=== PATIENT | male | born 1950 | race Caucasian/White ===

== ENCOUNTER 2022-10-24 13:56 | Inpatient (IN) | payer MEDICARE, OTHER ==
[~2022-10-24] VITALS: Ht 172.7 cm; Wt 78.9 kg
[2022-10-24] MEDS ORDERED: IV NS 0.9% 500 ML BAG IV ONE (14:30)
[2022-10-24] MEDS ORDERED: AMLO-213 PO (14:40)
[2022-10-24] MEDS ORDERED: ACET-868 PO (14:40)
[2022-10-24] MEDS ORDERED: CLON0.1T PO (14:40)
[2022-10-24] MEDS ORDERED: BISA10SU11 RC (14:40)
[2022-10-24] MEDS ORDERED: NA P133E RC (14:40)
[2022-10-24] MEDS ORDERED: MAGN400O6 PO (14:40)
[2022-10-24] MEDS ORDERED: VIT1CAPS44 PO (14:40)
[2022-10-24] MEDS ORDERED: RISP0.2515 PO (14:40)
[2022-10-24] MEDS ORDERED: LISI20TA30 PO (14:40)
[2022-10-24] MEDS ORDERED: SERT25TA PO (14:40)
--- NOTE | 2022-10-24 14:43 | NUR ---
MOVE SHEET SUBMITTED.
[2022-10-24 15:01] LABS: BASOPHILS # (AUTO) 0.1 K/uL (0.0-0.2); EOSINOPHILS % (AUTO) 1.4 % (0.0-6.0); HEMATOCRIT 46 % (39-51); HEMOGLOBIN 15.9 g/dL (13.5-17.5); LYMPHOCYTES # (AUTO) 1.5 K/uL (0.8-4.8); LYMPHOCYTES % (AUTO) 17.4 % (20.0-44.0); MEAN CORPUSCULAR HGB CONC 34 g/dl (31.0-36.0); MEAN CORPUSCULAR VOLUME 86 fL (80-96); MONOCYTES # (AUTO) 0.7 K/uL (0.1-1.30); MONOCYTES % (AUTO) 7.7 % (2.0-12.0); NEUTROPHILS # (AUTO) 6.4 K/uL (1.8-8.9); NEUTROPHILS % (AUTO) 72.5 % (43.0-81.0); PLATELET COUNT (AUTO) 189 K/uL (150-450); RED BLOOD CELL COUNT(AUTO) 5.38 MIL/uL (4.5-6.0); WHITE BLOOD COUNT (AUTO) 8.8 K/uL (4.3-11.0)
[2022-10-24 15:15] LABS: CARBON DIOXIDE 30 mmol/L (21-32); CHLORIDE 101 mmol/L (98-107); CREATININE 1.2 mg/dL (0.6-1.3); GLUCOSE 107 mg/dL (74-106); POTASSIUM 3.7 mmol/L (3.5-5.1); SODIUM SERUM 138 mmol/L (136-145); UREA NITROGEN, BLOOD 18 mg/dL (7-18)
[2022-10-24 15:21] LABS: ALANINE AMINOTRANSFERASE 21 U/L (12-78); ALBUMIN 3.9 g/dL (3.4-5.0); ALKALINE PHOSPHATASE 88 U/L (46-116); ASPARTATE AMINOTRANSFERASE 16 U/L (15-37); BILIRUBIN,DIRECT 0.1 mg/dL (0.0-0.2); BILIRUBIN,TOTAL 0.5 mg/dL (0.2-1.0); TOTAL PROTEIN, SERUM 7.3 g/dL (6.4-8.2)
[2022-10-24] MEDS ORDERED: Z GUARD REMEDY 4 OZ OINT TP PRN (15:30)
[2022-10-24] MEDS ORDERED: BISACODYL SUPP (10 MG) 10 MG/SUPP.RECT SUPP.RECT RC PRN (15:30)
[2022-10-24] MEDS ORDERED: CLONIDINE HCL 0.1 MG TABLET PO PRN (15:30)
[2022-10-24] MEDS ORDERED: MAGNESIUM HYDROXIDE 30 ML UDC PO PRN ×2 (15:30)
[2022-10-24] MEDS ORDERED: ACETAMINOPHEN 325 MG TABLET PO PRN ×4 (15:30)
[2022-10-24] MEDS ORDERED: NA PHOS,M-B/NA PHOS,DI-BA 1 EA ENEMA RC PRN (15:30)
[2022-10-24] MEDS ORDERED: ONDANSETRON HCL/PF 4 MG/2 ML VIAL IVP PRN (15:30)
[2022-10-24] MEDS ORDERED: MAG HYDROX/AL HYDROX/SIMETH 30 ML UDC PO PRN (15:30)
--- NOTE | 2022-10-24 16:25 | NUR ---
PT IN BED 7 A/O X4 DEAF BREATHNG EVEN AND UNLABORED ON ROOM AIR. IN BED HIGH ALVARENGA BED LOCKED IN LOWEST POSTION.
--- NOTE | 2022-10-24 16:26 | NUR ---
18G LAC STARTED BLOOD DRAWN.
[2022-10-24] MEDS: risperiDONE 1 MG TABLET PO SCH (17:00)
[2022-10-24] MEDS: LISINOPRIL (20MG) 20 MG TABLET PO SCH (17:00)
--- NOTE | 2022-10-24 17:49 | NUR ---
covid swab taken and sent to lab.
[2022-10-24 20:30] VITALS: BP 146/71
[2022-10-24] MEDS: IV NS 0.9% 1,000 ML IV PRN (21:29)
--- NOTE | 2022-10-24 21:30 | NUR ---
MS SENIOR PROGRAM MANAGER NOTE RECEIVED REPORT FROM THERAPIST GARY. PATIENT WAS BROUGHT TO THE UNIT AT [facility] [address] VIA STRETCHER, ACCOMPANIED BY ER STAFF. PATIENT IS ALERT AND ORIENTED X3-4. ABLE TO MAKE NEEDS KNOWN. AFEBRILE AND NOT IN ANY FORM OF ACUTE DISTRESS. PATIENT WAS ADMITTED FOR EVALUATION FOR UNCONTROLLED HYPERTENSION AND WAS DIAGNOSED WITH FAILURE TO THRIVE. PATIENT WAS NOTED TO BE DEAF AND COMMUNICATED BY WRITING ON A PIECE OF PAPER. EXPLAINED ADMISSION PROCESS WHICH INCLUDES SKIN ASSESSMENT WHICH THE PATIENT AGREED. UPON INSPECTION, A SCAB WAS NOTED IN L HAND BUT OVERALL, SKIN IS INTACT. WITH IV ACCESS ON LFA 18G-SL. VITAL SIGNS TAKEN AND FOLLOWS: BP- 146/71, P- 65, O2 SAT ON RA 97%, R- 20, T- 98.3. BELONGINGS AND VALUABLES CHECKED AND WAS PROPERLY DOCUMENTED BY ASSIGNED IT APPLICATION ARCHITECT. SAFETY MEASURES IN PLACE. KEPT BED IN LOCKED AND IN LOW POSITION. SIDE RAILS UP X2. BED ALARM ON. ADVISED TO USE THE CALL LIGHT WHEN IN NEED OF ASSISTANCE.
[2022-10-24 22:45] VITALS: BP 146/71
[2022-10-25 06:19] LABS: BASOPHILS # (AUTO) 0.1 K/uL (0.0-0.2); BASOPHILS % (AUTO) 0.9 % (0.0-2.0); EOSINOPHILS % (AUTO) 1.6 % (0.0-6.0); HEMATOCRIT 43 % (39-51); HEMOGLOBIN 14.8 g/dL (13.5-17.5); LYMPHOCYTES # (AUTO) 1.3 K/uL (0.8-4.8); LYMPHOCYTES % (AUTO) 17.4 % (20.0-44.0); MEAN CORPUSCULAR HGB CONC 35 g/dl (31.0-36.0); MEAN CORPUSCULAR VOLUME 85 fL (80-96); MONOCYTES # (AUTO) 0.6 K/uL (0.1-1.30); MONOCYTES % (AUTO) 7.8 % (2.0-12.0); NEUTROPHILS # (AUTO) 5.3 K/uL (1.8-8.9); NEUTROPHILS % (AUTO) 72.3 % (43.0-81.0); PLATELET COUNT (AUTO) 169 K/uL (150-450); RED BLOOD CELL COUNT(AUTO) 5.01 MIL/uL (4.5-6.0); WHITE BLOOD COUNT (AUTO) 7.4 K/uL (4.3-11.0)
--- NOTE | 2022-10-25 06:30 | NUR ---
MS RN CLOSING NOTE PATIENT IN BED, ASLEEP BUT EASY TO AROUSE AND RESPONSIVE. ALERT AND ORIENTED X3-4. ABLE TO MAKE NEEDS KNOWN. AFEBRILE AND NOT IN ANY FORM OF ACUTE DISTRESS. NO C/O PAIN OR DISCOMFORT THROUGHOUT THE SHIFT. WITH IV ACCESS ON LFA 18G RUNNING WITH NS AT 75ML/HR. CONSTANT VISUAL CHECK DONE. SAFETY MEASURES IN PLACE. KEPT BED IN LOCKED AND IN LOW POSITION. SIDE RAILS UP X2. BED ALARM ON. ADVISED TO USE THE CALL LIGHT WHEN IN NEED OF ASSISTANCE. ALL NURSING NEEDS ATTENDED. ENDORSED TO INCOMING SHIFT FOR CONTINUITY OF CARE.
[2022-10-25 06:49] LABS: CALCIUM, SERUM 8.2 mg/dL (8.5-10.1); CREATININE 1.1 mg/dL (0.6-1.3); MAGNESIUM 2.2 mg/dL (1.8-2.4); PHOSPHORUS 2.9 mg/dL (2.5-4.9); POTASSIUM 3.3 mmol/L (3.5-5.1)
--- NOTE | 2022-10-25 07:50 | NUR ---
RN-NOTES RECEIVED PATIENT LYING IN BED AWAKE,A/O X3,GUARDED,NO ACUTE DISTRESS NOTED. PATIENT ON IV FLUID RUNNING AT 75ML/HR, INFUSING WELL. PATIENT COMMUNICATING TROUGH WRITING.USES URINAL AT BEDSIDE.
[2022-10-25 08:00] VITALS: BP 152/81
[2022-10-25] MEDS ORDERED: POTASSIUM CHLORIDE 20 MEQ TAB.PRT.SR PO ONE (08:00)
[2022-10-25] MEDS: LORAZEPAM 0.5 MG TABLET PO PRN (08:24)
[2022-10-25] MEDS: NICOTINE PATCH (21MG) 21 MG PATCH.TD24 TD SCH (08:24)
[2022-10-25] MEDS: risperiDONE 1 MG TABLET PO SCH ×2 (08:36→16:37)
[2022-10-25] MEDS: AMLODIPINE BESYLATE 10 MG TABLET PO SCH (08:36)
[2022-10-25] MEDS: LISINOPRIL (20MG) 20 MG TABLET PO SCH ×2 (08:36→16:37)
[2022-10-25] MEDS: SERTRALINE HCL 25 MG TABLET PO SCH (08:36)
--- NOTE | 2022-10-25 08:40 | NUR ---
RN-NOTES PATIENT SCREAMING AND YELLING INSIST OF GOING FOR SMOKE. DR. BA AT BEDSIDE AND GAVE VERBAL ORDER OF NICOTINE 21 MG PATCH AND ATIVAN 0.5MG P.O Q6HR PRN. NOTED AND CARRIED OUT. REDIRECTED PATIENT AND ATIVAN 0.5MG P.O GIVEN PRN ORDER. WILL CONT. MONITORING FOR SAFETY AND BEHAVIOR.
--- NOTE | 2022-10-25 09:50 | NUR ---
RN-NOTES PATIENT LYING IN BED WATCHING TV,CALM,NO ACUTE DISTRESS NOTED.
[2022-10-25] MEDS: IV NS 0.9% 1,000 ML IV PRN (10:17)
[2022-10-25] MEDS ORDERED: CLONIDINE HCL 0.1 MG TABLET PO PRN (11:00)
[2022-10-25 16:00] VITALS: BP 141/86
--- NOTE | 2022-10-25 18:42 | NUR ---
RN-NOTES PATIENT LYING IN BED WATCHING TV,CALM,GUARDED A/O X3,NO ACUTE DISTRESS NOTED. PATIENT IS COMPLAINT WITH MEDICATIONS,ABLE TO AMBULATE TO THE BATHROOM WITHOUT ASSIST. HEP LOCK ON LAC 18G INTACT.REFUSED TO WEAR THE DVT PUMP DESPITE ENCOURAGEMENT AND EXPLANATIONS OF THE RISK AND BENEFITS. PATIENT STILL REFUSED. PATIENT CAN COMMUNICATE THROUGH WRITING.ALL NEEDS ATTENDED AND ANTICIPATED. WILL ENDORSE TO INCOMING NURSE FOR THE CONTINUITY OF CARE.
--- NOTE | 2022-10-25 19:24 | NUR ---
MS RN OPENING NOTES: RECEIVED PATIENT SLEEP IN BED COMFORTABLY, AROUSABLE TO VERBAL STIMULI, BED IN LOW POSITION CALL LIGHTS WITHIN REACH, NO COMPLAIN OF PAIN AND DISCOMFORT AT THIS TIME, ON ROOM AIR SATURATING WELL, PATIENT IS A/O 3- GARBLED, HARD OF HEARING, AMBULATORY, IV LINE AT LAC#18 SL, PATIENT KEPT CLEAN AND DRY ALL NEEDS MET WILL CONTINUE TO MONITOR.
[2022-10-25 21:11] VITALS: BP_SYST 139
--- NOTE | 2022-10-26 06:20 | NUR ---
MS RN CLOSING NOTES: PATIENT SLEEP IN BED COMFORTABLY, AROUSABLE TO VERBAL STIMULI, BE IN LOW POSITION CALL LIGHTS WITHIN REACH, NO COMPLAIN OF PAIN AND DISCOMFORT AT THIS TIME, ON ROOM AIR SATURATING WELL, PATIENT IS A/O X2-3 GARBLED WORDS, HARD OF HEARING OFFERED, WRITING BUT REFUSED, PATIENT HAS EPISODE OF AGITATION, ATTEMPT TO THROW SHOES AND CALLED SECURITY FOR ASSISTANCE, OFFERED MEDICATION PATIENT REFUSED, PATIENT KEPT CLEAN AND DRY ALL NEEDS MET ENDORSE TO INCOMING SHIFT.
--- NOTE | 2022-10-26 07:51 | NUR ---
MS RN OPENING NOTE (DAY SHIFT) RECEIVED PATIENT LYING IN BED AWAKE, A/O X3, GUARDED, NO ACUTE DISTRESS NOTED. PATIENT HAS 18 GAUGE SALINE LOCKED PIV CATHETER TO HIS LEFT ANTECUBITAL SPACE THAT IS CLEAN, DRY AND INTACT, FLUSHES WELL. PATIENT COMMUNICATING THROUGH WRITING DUE TO HARD OF HEARING IMPAIRED. USES URINAL AT BEDSIDE. SPEECH IS GARBLED WHEN HE DOES SPEAK BRIEFLY. WILL CONTINUE TO CARE FOR AND MONITOR PATIENT PER MD POC.
[2022-10-26 08:00] VITALS: BP 132/79
[2022-10-26] MEDS: AMLODIPINE BESYLATE 10 MG TABLET PO SCH (08:43)
[2022-10-26] MEDS: NICOTINE PATCH (21MG) 21 MG PATCH.TD24 TD SCH (08:44)
[2022-10-26] MEDS: SERTRALINE HCL 25 MG TABLET PO SCH (08:44)
[2022-10-26] MEDS: risperiDONE 1 MG TABLET PO SCH ×2 (08:44→17:17)
[2022-10-26] MEDS: LISINOPRIL (20MG) 20 MG TABLET PO SCH ×2 (08:44→17:17)
[2022-10-26] MEDS ORDERED: POTASSIUM CHLORIDE 20 MEQ TAB.PRT.SR PO ONE (09:30)
[2022-10-26] MEDS: LORAZEPAM 0.5 MG TABLET PO PRN ×2 (09:43→14:01)
[2022-10-26 16:00] VITALS: BP 155/84
--- NOTE | 2022-10-26 18:14 | NUR ---
MS RN CLOSING NOTE (DAY SHIFT) PATIENT AWAKE IN BED, ALERT AND ORIENTED X 3. BE IN LOW POSITION AND CALL LIGHT/MISHRA WITHIN REACH. NO COMPLAINT OF PAIN NOR DISCOMFORT AT THIS TIME. PT ON ROOM AIR SATURATING WELL. PATIENT CONTINUES TO BE HARD OF HEARING. WRITING ON PAPER TO COMMUNICATE OR USING HAND GESTURES. PATIENT APPROPRIATELY ASKING FOR PRN FOR AGITATION. PATIENT AGREED TO SIGN TAKING RESPONSABILITY FOR SMOKING AND SMOKED OUTSIDE WITH STAFF COMMERCIAL OCEAN CLAMMER X 2 THIS AFTERNOON. PATIENT UP OOB TO BATHROOM AD IRMA WITH STEADY WALKING GAIT. PT HAD GOOD APPETITE AT ALL THREE MEALS. WILL ENDORSE TO MOGUL OPERATOR RN FOR ERMA.
--- NOTE | 2022-10-26 19:00 | NUR ---
RN OPENING NOTE PT IS AWAKE, SITTING IN BED. A/O 3, GARBLED SPEECH AND COMMUNICATE THRU WRITING,. PT IS IN RA TOLERATING WELL, BREATHING EVEN AND UNLABORED AT THIS TIME. PT IV PRESENT IS ON LEFT AC #18G SALINE LOCK. PATENT, INTACT AND FLUSHES WELL W/ NO S&SX OF INFILTRATION @ SITE NOTED. SAFETY MEASURES IN PLACE. BED IN LOWEST AND LOCKED POSITION. SIDE RAILS X 2. BEDSIDE TABLE AND CALL LIGHT IS EASY REACH. WILL CONTINUE TO MONITOR PT ACCORDINGLY.
[2022-10-26 20:00] VITALS: BP 176/90
[2022-10-26] MEDS ORDERED: MIRTAZAPINE 15 MG TABLET PO SCH (22:00)
--- NOTE | 2022-10-27 06:47 | NUR ---
RN CLOSING NOTE PT IS AWAKE & RESTING IN BED. A/O 3, RESPONSIVE AND FOLLOWS VERBAL COMMAND. PT IS IN RA TOLERATING WELL, BREATHING EVEN AND UNLABORED AT THIS TIME. PT IV PRESENT IS ON LEFT AC #18G SALINE LOCK. PATENT, INTACT AND FLUSHES WELL W/ NO S&SX OF INFILTRATION @ SITE NOTED. ADMINISTERED MEDICATION ACCORDINGLY PER MD'S ORDER. SAFETY MEASURES IN PLACE. BED IN LOWEST AND LOCKED POSITION. SIDE RAILS X 2. BEDSIDE TABLE AND CALL LIGHT IS EASY REACH. WILL ENDORSE TO THE NEXT SHIFT FOR ERMA.
[2022-10-27 07:00] VITALS: BP_SYST 119; BP_SYST 154; BP_DIAS 79
--- NOTE | 2022-10-27 07:20 | NUR ---
RN OPENING NOTE- PT A/O 3, UNINTELLIGIBLE SPEECH AND COMMUNICATES THRU WRITING,. PT IS IN RA TOLERATING WELL, BREATHING EVEN AND NON-LABORED AT THIS TIME. PT IV PRESENT IS ON LEFT AC #18G SALINE LOCK. PATENT, INTACT , SAFETY MEASURES IN PLACE. BED IN LOWEST AND LOCKED POSITION. SIDE RAILS MONITOR / ASSIST
[2022-10-27] MEDS: AMLODIPINE BESYLATE 10 MG TABLET PO SCH (08:43)
[2022-10-27 08:44] VITALS: BP 154/79
[2022-10-27] MEDS: risperiDONE 1 MG TABLET PO SCH (08:44)
[2022-10-27] MEDS: LISINOPRIL (20MG) 20 MG TABLET PO SCH (08:44)
[2022-10-27] MEDS: NICOTINE PATCH (21MG) 21 MG PATCH.TD24 TD SCH (08:44)
[2022-10-27] MEDS ORDERED: MIRT-121 PO (09:11)
--- NOTE | 2022-10-27 13:30 | NUR ---
RN NOTE / DC - PT DC AT THIS TIME TO [facility]. REPORT PHONED INTO FACILITY. ORDERS REVIEWED AND UNDERSTOOD. VS STABLE. IV REMOVED. ID [id number] REMOVED. ESCORTED OFF UNIT BY STAFF.
== END 2022-10-27 14:00 | DRG 640 ==
LOC: ER 14:17 → MED 20:10
PROVIDERS: ADMIT Internal Medicine; ATTEND Internal Medicine
DX: E86.0 Dehydration (principal); G93.41 Metabolic encephalopathy; F25.9 Schizoaffective disorder, unspecified; R45.1 Restlessness and agitation; I69.320 Aphasia following cerebral infarction; J44.9 Chronic obstructive pulmonary disease, unspecified; H35.30 Unspecified macular degeneration; H91.90 Unspecified hearing loss, unspecified ear; R62.7 Adult failure to thrive; Z68.26 Body mass index [BMI] 26.0-26.9, adult; Z79.899 Other long term (current) drug therapy; I11.0 Hypertensive heart disease with heart failure; I50.9 Heart failure, unspecified
CPT/HCPCS: 36415; 71045-TC; 80048-TC; 80076-TC; 83605-TC; 83735-TC; 84100-TC; 84484-TC; 85025-TC; 87040-TC; 87081-TC; A4223; C9803; G0378; J7030; J7040

== ENCOUNTER 2023-06-05 19:11 | Inpatient (IN) | payer MEDICARE, OTHER ==
[~2023-06-05] VITALS: Ht 172.7 cm; Wt 84.4 kg
[~2023-06-05 19:11] MED LIST: ACET-868 PO; AMLO-213 PO; BISA10SU11 RC; CLON0.1T PO; LISI20TA30 PO; MAGN400O6 PO; MIRT-121 PO; NA P133E RC; RISP0.2515 PO; VIT1CAPS44 PO
[2023-06-05 20:22] LABS: BASOPHILS # (AUTO) 0.1 K/uL (0.0-0.2); EOSINOPHILS # (AUTO) 0.2 K/uL (0.0-0.7); EOSINOPHILS % (AUTO) 2.2 % (0.0-6.0); HEMATOCRIT 44 % (39-51); HEMOGLOBIN 14.9 g/dL (13.5-17.5); LYMPHOCYTES # (AUTO) 1.6 K/uL (0.8-4.8); LYMPHOCYTES % (AUTO) 19.3 % (20.0-44.0); MEAN CORPUSCULAR HEMOGLOBIN 29 PG (26.0-33.0); MEAN CORPUSCULAR HGB CONC 34 g/dl (31.0-36.0); MEAN CORPUSCULAR VOLUME 87 fL (80-96); MONOCYTES # (AUTO) 0.7 K/uL (0.1-1.30); MONOCYTES % (AUTO) 8.1 % (2.0-12.0); NEUTROPHILS # (AUTO) 5.7 K/uL (1.8-8.9); NEUTROPHILS % (AUTO) 69.4 % (43.0-81.0); PLATELET COUNT (AUTO) 169 K/uL (150-450); RED BLOOD CELL COUNT(AUTO) 5.12 MIL/uL (4.5-6.0); RED CELL DISTRIBUTION WIDTH 13.4 % (11.5-15.0); WHITE BLOOD COUNT (AUTO) 8.1 K/uL (4.3-11.0)
[2023-06-05 20:36] LABS: CARBON DIOXIDE 29 mmol/L (21-32); CHLORIDE 99 mmol/L (98-107); GLUCOSE 102 mg/dL (74-106); POTASSIUM 3.4 mmol/L (3.5-5.1); SODIUM SERUM 137 mmol/L (136-145); UREA NITROGEN, BLOOD 18 mg/dL (7-18)
[2023-06-05 21:09] LABS: APPEARANCE,URINE CLEAR (CLEAR); BILIRUBIN,URINE NEGATIVE (NEGATIVE); BLOOD, URINE NEGATIVE Ery/uL (NEGATIVE); COLOR,URINE YELLOW (YELLOW); KETONES,URINE NEGATIVE (NEGATIVE); LEUKOCYTE ESTERASE ,URINE NEGATIVE (NEGATIVE); NITRITE, URINE POSITIVE (NEGATIVE); PROTEIN,URINE NEGATIVE (NEGATIVE); UGLUCOSE NEGATIVE (NEGATIVE)
[2023-06-05 21:44] LABS: ADD URINE CULTURE YES; BACTERIA,URINE 1+ /HPF (None Seen); RBC,URINE 0-2 /HPF (0-2); SQUAMOUS EPITHELIAL CELL,UR 0-2 /HPF (None Seen); WBC,URINE 0-2 /HPF (0-3)
[2023-06-05] MEDS ORDERED: LIDOCAINE 1%-EPI 1:100,000 20 ML VIAL ONE (21:56)
[2023-06-05] MEDS ORDERED: CEPHALEXIN MONOHYDRATE 500 MG CAPSULE PO ONE (22:00)
[2023-06-05] MEDS ORDERED: LIDOCAINE 1%-EPI 1:100,000 20 ML VIAL TP ONE (22:00)
[2023-06-05 23:15] VITALS: BP 159/80; TEMP 98; O2SAT 99
[2023-06-05] MEDS ORDERED: IPRATROPIUM NEB FS 0.5 MG/2.5 ML AMPUL.NEB NEB PRN (23:30)
[2023-06-05] MEDS ORDERED: POTASSIUM CHLORIDE 20 MEQ TAB.PRT.SR PO ONE (23:30)
[2023-06-05] MEDS ORDERED: ALBUTEROL FS 2.5 MG/3 ML VIAL.NEB NEB PRN (23:30)
[2023-06-05] MEDS ORDERED: Z GUARD REMEDY 4 OZ OINT TP PRN (23:30)
[2023-06-05] MEDS ORDERED: MAGNESIUM HYDROXIDE 30 ML UDC PO PRN (23:30)
[2023-06-05] MEDS ORDERED: ONDANSETRON HCL/PF 4 MG/2 ML VIAL IVP PRN (23:30)
[2023-06-05] MEDS ORDERED: ACETAMINOPHEN 325 MG TABLET PO PRN (23:30)
[2023-06-06] MEDS ORDERED: CEPHALEXIN MONOHYDRATE 500 MG CAPSULE PO SCH
[2023-06-06 00:45] VITALS: BP 159/80; TEMP 98; O2SAT 99
[2023-06-06] MEDS ORDERED: NA PHOS,M-B/NA PHOS,DI-BA 1 EA ENEMA RC PRN (01:00)
[2023-06-06] MEDS ORDERED: CLONIDINE HCL 0.1 MG TABLET PO PRN (01:00)
[2023-06-06] MEDS ORDERED: BISACODYL SUPP (10 MG) 10 MG/SUPP.RECT SUPP.RECT RC PRN (01:00)
[2023-06-06] MEDS: CEPHALEXIN MONOHYDRATE 500 MG CAPSULE PO SCH ×3 (05:27→18:21)
[2023-06-06 06:21] LABS: BASOPHILS # (AUTO) 0.1 K/uL (0.0-0.2); BASOPHILS % (AUTO) 0.8 % (0.0-2.0); EOSINOPHILS # (AUTO) 0.2 K/uL (0.0-0.7); EOSINOPHILS % (AUTO) 2.7 % (0.0-6.0); HEMATOCRIT 45 % (39-51); HEMOGLOBIN 15.5 g/dL (13.5-17.5); LYMPHOCYTES # (AUTO) 1.1 K/uL (0.8-4.8); LYMPHOCYTES % (AUTO) 15.5 % (20.0-44.0); MEAN CORPUSCULAR HEMOGLOBIN 29 PG (26.0-33.0); MEAN CORPUSCULAR HGB CONC 34 g/dl (31.0-36.0); MEAN CORPUSCULAR VOLUME 86 fL (80-96); MONOCYTES # (AUTO) 0.6 K/uL (0.1-1.30); MONOCYTES % (AUTO) 7.9 % (2.0-12.0); NEUTROPHILS # (AUTO) 5.1 K/uL (1.8-8.9); NEUTROPHILS % (AUTO) 73.1 % (43.0-81.0); PLATELET COUNT (AUTO) 177 K/uL (150-450); RED CELL DISTRIBUTION WIDTH 13.2 % (11.5-15.0)
[2023-06-06 06:48] LABS: CALCIUM, SERUM 8.6 mg/dL (8.5-10.1); CARBON DIOXIDE 29 mmol/L (21-32); CHLORIDE 99 mmol/L (98-107); CREATININE 1.1 mg/dL (0.6-1.3); GLUCOSE 149 mg/dL (74-106); MAGNESIUM 2.2 mg/dL (1.8-2.4); PHOSPHORUS 3.4 mg/dL (2.5-4.9); POTASSIUM 3.4 mmol/L (3.5-5.1); SODIUM SERUM 138 mmol/L (136-145); UREA NITROGEN, BLOOD 14 mg/dL (7-18)
[2023-06-06 07:07] LABS: THYROID STIMULATING HORMONE 3.579 uIU/mL (0.358-3.74)
[2023-06-06 08:00] VITALS: BP 139/87; TEMP 97.8; O2SAT 97
[2023-06-06] MEDS: PANTOPRAZOLE 40 MG TABLET.DR PO SCH (08:36)
[2023-06-06] MEDS: risperiDONE 1 MG TABLET PO SCH ×2 (08:48→18:21)
[2023-06-06] MEDS: NICOTINE PATCH (14MG) 14 MG PATCH.TD24 TD SCH (08:48)
[2023-06-06] MEDS: LISINOPRIL (20MG) 20 MG TABLET PO SCH ×2 (08:49→18:22)
[2023-06-06] MEDS: AMLODIPINE BESYLATE 10 MG TABLET PO SCH (08:50)
[2023-06-06] MEDS ORDERED: POTASSIUM CHLORIDE 20 MEQ TAB.PRT.SR PO ONE (11:30)
[2023-06-06 16:00] VITALS: BP 136/71; TEMP 98.4; O2SAT 96
[2023-06-06 20:00] VITALS: BP 125/61; TEMP 97.8; O2SAT 95
[2023-06-06] MEDS: MIRTAZAPINE 15 MG TABLET PO SCH (21:34)
[2023-06-07] MEDS: CEPHALEXIN MONOHYDRATE 500 MG CAPSULE PO SCH ×4 (00:05→17:23)
[2023-06-07 06:05] LABS: BASOPHILS # (AUTO) 0.1 K/uL (0.0-0.2); BASOPHILS % (AUTO) 0.8 % (0.0-2.0); EOSINOPHILS # (AUTO) 0.2 K/uL (0.0-0.7); EOSINOPHILS % (AUTO) 2.5 % (0.0-6.0); HEMATOCRIT 44 % (39-51); HEMOGLOBIN 14.9 g/dL (13.5-17.5); LYMPHOCYTES # (AUTO) 1.2 K/uL (0.8-4.8); LYMPHOCYTES % (AUTO) 16.5 % (20.0-44.0); MEAN CORPUSCULAR HEMOGLOBIN 29 PG (26.0-33.0); MEAN CORPUSCULAR HGB CONC 34 g/dl (31.0-36.0); MEAN CORPUSCULAR VOLUME 86 fL (80-96); MONOCYTES # (AUTO) 0.6 K/uL (0.1-1.30); MONOCYTES % (AUTO) 8.5 % (2.0-12.0); NEUTROPHILS # (AUTO) 5.3 K/uL (1.8-8.9); NEUTROPHILS % (AUTO) 71.7 % (43.0-81.0); PLATELET COUNT (AUTO) 160 K/uL (150-450); RED BLOOD CELL COUNT(AUTO) 5.14 MIL/uL (4.5-6.0); RED CELL DISTRIBUTION WIDTH 13.1 % (11.5-15.0); WHITE BLOOD COUNT (AUTO) 7.4 K/uL (4.3-11.0)
[2023-06-07 06:26] LABS: CALCIUM, SERUM 8.2 mg/dL (8.5-10.1); CARBON DIOXIDE 26 mmol/L (21-32); CHLORIDE 104 mmol/L (98-107); CREATININE 1.1 mg/dL (0.6-1.3); GLUCOSE 104 mg/dL (74-106); POTASSIUM 3.7 mmol/L (3.5-5.1); SODIUM SERUM 139 mmol/L (136-145); UREA NITROGEN, BLOOD 19 mg/dL (7-18)
[2023-06-07] MEDS: LISINOPRIL (20MG) 20 MG TABLET PO SCH ×2 (08:25→17:34)
[2023-06-07] MEDS: NICOTINE PATCH (14MG) 14 MG PATCH.TD24 TD SCH (08:25)
[2023-06-07] MEDS: risperiDONE 1 MG TABLET PO SCH ×2 (08:25→17:23)
[2023-06-07] MEDS: PANTOPRAZOLE 40 MG TABLET.DR PO SCH (08:26)
[2023-06-07] MEDS: AMLODIPINE BESYLATE 10 MG TABLET PO SCH (08:26)
[2023-06-07 20:00] VITALS: BP 145/70; TEMP 98.1; O2SAT 96
[2023-06-07] MEDS: MIRTAZAPINE 15 MG TABLET PO SCH (22:03)
[2023-06-08] MEDS: CEPHALEXIN MONOHYDRATE 500 MG CAPSULE PO SCH ×3 (00:52→13:14)
[2023-06-08 07:00] VITALS: BP 118/70; TEMP 98.2; O2SAT 94
[2023-06-08] MEDS ORDERED: Cephalexin Monohydrate PO (08:32)
[2023-06-08] MEDS: AMLODIPINE BESYLATE 10 MG TABLET PO SCH (09:16)
[2023-06-08] MEDS: PANTOPRAZOLE 40 MG TABLET.DR PO SCH (09:16)
[2023-06-08 09:17] VITALS: BP 118/70
[2023-06-08] MEDS: LISINOPRIL (20MG) 20 MG TABLET PO SCH (09:17)
[2023-06-08] MEDS: NICOTINE PATCH (14MG) 14 MG PATCH.TD24 TD SCH (09:17)
[2023-06-08] MEDS: risperiDONE 1 MG TABLET PO SCH (09:17)
== END 2023-06-08 14:34 | DRG 603 ==
LOC: ER 19:23 → MED 22:29
PROVIDERS: ADMIT Nurse Practitioner Family; ATTEND Internal Medicine
PROC: 0J950ZZ Drainage of Left Neck Subcutaneous Tissue and Fascia, Open Approach (ICD-10-PCS; principal; 2023-06-05)
PROC: 0J940ZZ Drainage of Right Neck Subcutaneous Tissue and Fascia, Open Approach (ICD-10-PCS; 2023-06-05)
DX: L02.11 Cutaneous abscess of neck (principal); N39.0 Urinary tract infection, site not specified; I69.320 Aphasia following cerebral infarction; J44.9 Chronic obstructive pulmonary disease, unspecified; E87.6 Hypokalemia; F20.9 Schizophrenia, unspecified; F32.A Depression, unspecified; H91.90 Unspecified hearing loss, unspecified ear; I50.9 Heart failure, unspecified; I11.0 Hypertensive heart disease with heart failure; R53.1 Weakness; B96.89 Other specified bacterial agents as the cause of diseases classified elsewhere; F17.210 Nicotine dependence, cigarettes, uncomplicated; Z71.6 Tobacco abuse counseling
CPT/HCPCS: 36415; 71045-TC; 80048-TC; 81001; 83735-TC; 84100-TC; 84443-TC; 84484-TC; 85025-TC; 87086-TC; 97112-TC; 97116-TC; 97530-TC; G0378; J3490

== ENCOUNTER 2024-03-02 18:57 | Inpatient (IN) | payer MEDICARE, OTHER ==
[~2024-03-02] VITALS: Ht 177.8 cm; Wt 94.3 kg
[~2024-03-02 18:57] MED LIST changes: +Cephalexin Monohydrate PO
[2024-03-02 19:30] LABS: BASOPHILS # (AUTO) 0.1 K/uL (0.0-0.2); BASOPHILS % (AUTO) 1.1 % (0.0-2.0); EOSINOPHILS # (AUTO) 0.2 K/uL (0.0-0.7); EOSINOPHILS % (AUTO) 1.9 % (0.0-6.0); HEMATOCRIT 45 % (39-51); HEMOGLOBIN 15.2 g/dL (13.5-17.5); LYMPHOCYTES # (AUTO) 1.7 K/uL (0.8-4.8); LYMPHOCYTES % (AUTO) 19.1 % (20.0-44.0); MEAN CORPUSCULAR HEMOGLOBIN 29 PG (26.0-33.0); MEAN CORPUSCULAR HGB CONC 34 g/dl (31.0-36.0); MEAN CORPUSCULAR VOLUME 86 fL (80-96); MONOCYTES # (AUTO) 0.7 K/uL (0.1-1.30); MONOCYTES % (AUTO) 8.1 % (2.0-12.0); NEUTROPHILS # (AUTO) 6.4 K/uL (1.8-8.9); NEUTROPHILS % (AUTO) 69.8 % (43.0-81.0); PLATELET COUNT (AUTO) 187 K/uL (150-450); RED BLOOD CELL COUNT(AUTO) 5.23 MIL/uL (4.5-6.0); RED CELL DISTRIBUTION WIDTH 13.2 % (11.5-15.0); WHITE BLOOD COUNT (AUTO) 9.1 K/uL (4.3-11.0)
[2024-03-02 19:46] LABS: CALCIUM, SERUM 9.2 mg/dL (8.5-10.1); CARBON DIOXIDE 29 mmol/L (21-32); CHLORIDE 102 mmol/L (98-107); CREATININE 1.2 mg/dL (0.6-1.3); GLUCOSE 131 mg/dL (74-106); POTASSIUM 3.4 mmol/L (3.5-5.1); SODIUM SERUM 139 mmol/L (136-145); UREA NITROGEN, BLOOD 22 mg/dL (7-18)
[2024-03-02 21:10] VITALS: BP 147/80; TEMP 98.4; O2SAT 96
[2024-03-02] MEDS ORDERED: ACETAMINOPHEN 325 MG TABLET PO PRN (22:00)
[2024-03-02] MEDS ORDERED: MAG HYDROX/AL HYDROX/SIMETH 30 ML UDC PO PRN (22:00)
[2024-03-02] MEDS ORDERED: MAGNESIUM HYDROXIDE 30 ML UDC PO PRN (22:00)
[2024-03-02] MEDS ORDERED: Z GUARD REMEDY 4 OZ OINT TP PRN (22:00)
[2024-03-02] MEDS ORDERED: ONDANSETRON HCL/PF 4 MG/2 ML VIAL IVP PRN (22:00)
[2024-03-02] MEDS ORDERED: ZOLPIDEM TARTRATE 5 MG TABLET PO PRN (22:00)
[2024-03-02] MEDS: POTASSIUM CHLORIDE 20 MEQ TAB.PRT.SR PO ONE (22:14)
[2024-03-02] MEDS: ENOXAPARIN SODIUM 40 MG/0.4 ML DISP.SYRIN SQ SCH (22:20)
[2024-03-03 06:00] VITALS: BP 156/89; TEMP 98.1; O2SAT 97
[2024-03-03 06:01] VITALS: BP 154/91; TEMP 98.2; O2SAT 96
[2024-03-03 06:13] LABS: BASOPHILS # (AUTO) 0.1 K/uL (0.0-0.2); EOSINOPHILS # (AUTO) 0.2 K/uL (0.0-0.7); EOSINOPHILS % (AUTO) 1.9 % (0.0-6.0); HEMATOCRIT 46 % (39-51); HEMOGLOBIN 15.4 g/dL (13.5-17.5); LYMPHOCYTES # (AUTO) 1.5 K/uL (0.8-4.8); LYMPHOCYTES % (AUTO) 18.7 % (20.0-44.0); MEAN CORPUSCULAR HEMOGLOBIN 29 PG (26.0-33.0); MEAN CORPUSCULAR HGB CONC 34 g/dl (31.0-36.0); MEAN CORPUSCULAR VOLUME 87 fL (80-96); MONOCYTES # (AUTO) 0.7 K/uL (0.1-1.30); NEUTROPHILS # (AUTO) 5.6 K/uL (1.8-8.9); NEUTROPHILS % (AUTO) 69.4 % (43.0-81.0); PLATELET COUNT (AUTO) 171 K/uL (150-450); RED BLOOD CELL COUNT(AUTO) 5.25 MIL/uL (4.5-6.0); RED CELL DISTRIBUTION WIDTH 13.4 % (11.5-15.0); WHITE BLOOD COUNT (AUTO) 8.1 K/uL (4.3-11.0)
[2024-03-03 06:38] LABS: ALANINE AMINOTRANSFERASE 16 U/L (12-78); ALBUMIN 3.2 g/dL (3.4-5.0); ALKALINE PHOSPHATASE 80 U/L (46-116); ASPARTATE AMINOTRANSFERASE 6 U/L (15-37); BILIRUBIN,DIRECT 0.2 mg/dL (0.0-0.2); BILIRUBIN,TOTAL 0.7 mg/dL (0.2-1.0); CARBON DIOXIDE 24 mmol/L (21-32); CHLORIDE 104 mmol/L (98-107); GLUCOSE 101 mg/dL (74-106); MAGNESIUM 2.4 mg/dL (1.8-2.4); PHOSPHORUS 3.2 mg/dL (2.5-4.9); POTASSIUM 3.7 mmol/L (3.5-5.1); SODIUM SERUM 139 mmol/L (136-145); UREA NITROGEN, BLOOD 19 mg/dL (7-18)
[2024-03-03 06:53] LABS: CHOLESTEROL 124 mg/dL (<200); HDL CHOLESTEROL 34 mg/dL (40-60); LDL 80 mg/dL (0-99); TRIGLYCERIDES 96 mg/dL (30-150)
[2024-03-03] MEDS ORDERED: CRAN300T PO (08:14)
[2024-03-03] MEDS ORDERED: RISP0.5T65 PO (08:14)
[2024-03-03] MEDS ORDERED: SERT25TA5 PO (08:14)
[2024-03-03] MEDS ORDERED: MULT-213 PO (08:14)
[2024-03-03] MEDS: PANTOPRAZOLE 40 MG TABLET.DR PO SCH (08:36)
[2024-03-03] MEDS: NICOTINE PATCH (14MG) 14 MG PATCH.TD24 TD SCH (12:11)
[2024-03-03 16:00] VITALS: BP 163/84; TEMP 98.2; O2SAT 97
[2024-03-03 20:00] VITALS: BP 130/75; TEMP 98.2; O2SAT 94
[2024-03-03] MEDS ORDERED: CLONIDINE HCL 0.1 MG TABLET PO PRN (21:00)
[2024-03-04 04:08] VITALS: BP 154/83; TEMP 98.5; O2SAT 95
[2024-03-04 06:40] LABS: BASOPHILS # (AUTO) 0.1 K/uL (0.0-0.2); EOSINOPHILS # (AUTO) 0.2 K/uL (0.0-0.7); EOSINOPHILS % (AUTO) 2.1 % (0.0-6.0); HEMATOCRIT 46 % (39-51); HEMOGLOBIN 15.3 g/dL (13.5-17.5); LYMPHOCYTES # (AUTO) 1.3 K/uL (0.8-4.8); LYMPHOCYTES % (AUTO) 16.8 % (20.0-44.0); MEAN CORPUSCULAR HEMOGLOBIN 29 PG (26.0-33.0); MEAN CORPUSCULAR HGB CONC 34 g/dl (31.0-36.0); MEAN CORPUSCULAR VOLUME 86 fL (80-96); MONOCYTES # (AUTO) 0.6 K/uL (0.1-1.30); MONOCYTES % (AUTO) 7.4 % (2.0-12.0); NEUTROPHILS # (AUTO) 5.6 K/uL (1.8-8.9); NEUTROPHILS % (AUTO) 72.7 % (43.0-81.0); PLATELET COUNT (AUTO) 175 K/uL (150-450); RED BLOOD CELL COUNT(AUTO) 5.29 MIL/uL (4.5-6.0); RED CELL DISTRIBUTION WIDTH 12.9 % (11.5-15.0); WHITE BLOOD COUNT (AUTO) 7.7 K/uL (4.3-11.0)
[2024-03-04 06:50] LABS: ALANINE AMINOTRANSFERASE 12 U/L (12-78); ALBUMIN 3.1 g/dL (3.4-5.0); ALKALINE PHOSPHATASE 82 U/L (46-116); ASPARTATE AMINOTRANSFERASE 13 U/L (15-37); BILIRUBIN,TOTAL 0.8 mg/dL (0.2-1.0); CALCIUM, SERUM 8.6 mg/dL (8.5-10.1); CARBON DIOXIDE 26 mmol/L (21-32); CHLORIDE 104 mmol/L (98-107); GLUCOSE 99 mg/dL (74-106); MAGNESIUM 2.4 mg/dL (1.8-2.4); PHOSPHORUS 2.6 mg/dL (2.5-4.9); POTASSIUM 3.3 mmol/L (3.5-5.1); SODIUM SERUM 138 mmol/L (136-145); TOTAL PROTEIN, SERUM 7.1 g/dL (6.4-8.2); UREA NITROGEN, BLOOD 19 mg/dL (7-18)
[2024-03-04 08:18] VITALS: BP 148/90; TEMP 97.7; O2SAT 99
[2024-03-04] MEDS: MULTIVITAMINS,THERAGRAN 1 UDTAB TABLET PO SCH (08:40)
[2024-03-04] MEDS: SERTRALINE HCL 25 MG TABLET PO SCH (08:40)
[2024-03-04] MEDS: MULTIVITAMIN/LUTEIN/MINERALS 1 TAB PO SCH (08:40)
[2024-03-04] MEDS: risperiDONE 0.25 MG TABLET PO SCH (08:41)
[2024-03-04] MEDS: AMLODIPINE BESYLATE 10 MG TABLET PO SCH (08:50)
[2024-03-04] MEDS: LISINOPRIL (20MG) 20 MG TABLET PO SCH (08:50)
[2024-03-04] MEDS ORDERED: Medication Not On Formulary EA (Cranberry Extract (Cranberry) 450 MG) PO SCH (09:00)
[2024-03-04] MEDS: POTASSIUM CHLORIDE 20 MEQ TAB.PRT.SR PO SCH (10:42)
[2024-03-04] MEDS: BACITRACIN ZINC OINT PACKET 1 EA PACKET TP SCH (11:13)
[2024-03-04 16:22] VITALS: BP 142/80; TEMP 98; O2SAT 94
[2024-03-04 20:00] VITALS: BP 122/55; TEMP 98.8; O2SAT 95
[2024-03-04 20:39] VITALS: BP 122/55; TEMP 98.8; O2SAT 95
[2024-03-05 08:00] VITALS: BP 161/81; TEMP 98.4; O2SAT 95
[2024-03-05 08:18] VITALS: BP 161/81
[2024-03-05] MEDS ORDERED: BACITRACIN ZINC OINT (15 GM) 15 GM TUBE TP SCH (17:00)
== END 2024-03-05 16:45 | DRG 305 ==
LOC: ER 19:02 → MED 20:39 → TELE 22:33 → MED 03-03 15:14
PROVIDERS: ADMIT Nurse Practitioner Family
DX: I10 Essential (primary) hypertension (principal); J44.9 Chronic obstructive pulmonary disease, unspecified; E87.6 Hypokalemia; G89.29 Other chronic pain; F20.9 Schizophrenia, unspecified; I11.0 Hypertensive heart disease with heart failure; I69.320 Aphasia following cerebral infarction; E78.5 Hyperlipidemia, unspecified; R73.9 Hyperglycemia, unspecified; M19.90 Unspecified osteoarthritis, unspecified site; F17.210 Nicotine dependence, cigarettes, uncomplicated; I50.9 Heart failure, unspecified; Z79.899 Other long term (current) drug therapy; F32.A Depression, unspecified; S61.402A Unspecified open wound of left hand, initial encounter; X58.XXXA Exposure to other specified factors, initial encounter; Y93.9 Activity, unspecified; Y92.129 Unspecified place in nursing home as the place of occurrence of the external cause; Y99.9 Unspecified external cause status; H91.93 Unspecified hearing loss, bilateral
CPT/HCPCS: 36415; 71045-TC; 73564-TC; 80048-TC; 80053-TC; 80061-TC; 80076-TC; 83735-TC; 84100-TC; 84443-TC; 84484-TC; 85025-TC; 97110-TC; 97116-TC; 97530-TC; G0378; J1650